=== PATIENT | female | born 1950 | race Caucasian/White ===

== ENCOUNTER 2018-01-12 08:39 | Observation (INO) ==
[2018-01-14 08:11] VITALS: BP 144/64
== END 2018-01-14 10:40 | disposition home or self-care (01) ==
LOC: N.ED 08:39 → N.EDINP 08:39 → N.TELES 11:24
PROVIDERS: ADMIT Family Medicine; ATTEND Family Medicine
PROC: CLCCHCL (ICD-10-PCS; 2018-01-13 09:15)